=== PATIENT | female | born 1985 | race Caucasian/White ===

== ENCOUNTER 2021-04-16 17:19 | Emergency (ER) | payer MEDICAID ==
[2021-04-16] MEDS ORDERED: Clindamycin HCl 150 MG Cap PO ONE (18:23)
[2021-04-16] MEDS ORDERED: Doxycycline 100 MG Cap PO ONE (18:23)
--- NOTE | 2021-04-16 18:26 | EDM.PDOC ---
ED HPI GENERAL MEDICAL PROBLEM - General Chief Complaint: Skin Complaint Stated Complaint: ABCESS ON LEG Time Seen by Provider: 04/16/21 17:29 Source of Information: Reports: Patient, RN Notes Reviewed History Limitations: Reports: No Limitations - History of Present Illness INITIAL COMMENTS - FREE TEXT/NARRATIVE: Patient is a 35-year-old female presenting to the emergency department with complaints of an area of redness, pain, and swelling to her right lateral lower extremity. Reports 2 days ago she injected meth in this area and woke up with the discomfort this morning. She denies any fever, chills, nausea, or vomiting. She is also concerned that she may be . Reports that her Mirena is due to be replaced and she has been having breast tenderness. She would like a test done. Right Leg Pain Score (Numeric/FACES): 6 - Related Data Allergies Allergy/AdvReac Type Severity Reaction Status Date / Time amphetamine [From Adderall] Allergy Headache Verified 04/16/21 17:33 dextroamphetamine Allergy Headache Verified 04/16/21 17:33 [From Adderall] Home Meds: Home Meds Clindamycin HCl 300 mg PO Q8H 7 Days #20 capsule 04/16/21 [Rx] Doxycycline [Vibramycin] 100 mg PO BID 10 Days #19 cap 04/16/21 [Rx] Lisdexamfetamine Dimesylate [Vyvanse] 40 mg PO DAILY 04/16/21 [History] Past Medical History [employer] History: Reports: Psychiatric History: Reports: ADHD, Anxiety, Depression, PTSD Social & Family History - Tobacco Use Tobacco Use Status *Q: Current Every Day Tobacco User Years of Tobacco use: 20 Packs/Tins Daily: 0.5 - Caffeine Use Caffeine Use: Reports: Coffee, Energy Drinks, Soda - Recreational Drug Use Recreational Drug Use: Yes Recreational Drug Type: Reports: Marijuana/Hashish, Methamphetamine Recreational Drug Use Frequency: Daily ED ROS GENERAL - Review of Systems Review Of Systems: Comprehensive ROS is negative, except as noted in HPI. ED EXAM, SKIN/RASH Exam: See Below Exam Limited By: No Limitations General Appearance: Alert, WD/WN, No Apparent Distress Respiratory/Chest: No Respiratory Distress, Lungs Clear, Normal Breath Sounds, No Accessory Muscle Use, Chest Non-Tender Cardiovascular: Normal Peripheral Pulses, Regular Rate, Rhythm, No Edema, No Gallop, No JVD, No Murmur, No Rub Neurological: Alert, Oriented, Normal Cognition, Normal Gait, No Motor/Sensory Deficits Psychiatric: Normal Affect, Normal Mood Skin: Other (6 cm area of redness and warmth to the lateral aspect of the right lower extremity. No localized area of induration. No drainage.) Course - Vital Signs Last Recorded V/S: Last Vital Signs Temp 97.0 F 04/16/21 18:40 Pulse 106 H 04/16/21 18:40 Resp 16 04/16/21 18:40 BP 118/74 04/16/21 18:40 Pulse Ox 100 04/16/21 18:40 - Orders/Labs/Meds Labs: Laboratory Tests 04/16/21 Range/Units 17:40 Urine HCG, Qual Negative (NEGATIVE) Meds: Medications Discontinued Medications Generic Name Dose Route Start Last Admin Trade Name Freq PRN Reason Stop Dose Admin Clindamycin HCl 300 mg 04/16/21 18:23 04/16/21 18:35 Clindamycin Hcl 150 Mg Cap PO 04/16/21 18:24 300 mg ONETIME ONE Administration Ceftriaxone Sodium 1 gm/ 0 gm 04/16/21 18:30 04/16/21 18:36 Lidocaine HCl 2.1 ml IM 1 inj Q24H FLOR Administration Doxycycline Hyclate 100 mg 04/16/21 18:23 04/16/21 18:35 Doxycycline 100 Mg Cap PO 04/16/21 18:24 100 mg ONETIME ONE Administration - Re-Assessments/Exams Free Text/Narrative Re-Assessment/Exam: Patient is a 35-year-old female presenting to the emergency department for evaluation of infection to her right lower leg. She injected meth 2 days ago and developed pain and swelling this morning. On exam, there is approximate 6 cm area of redness, warmth, and slight swelling. There is no localized area of induration. Bedside ultrasound completed showed no collection of fluid indicating abscess. hCG test was completed during triage process and found to be negative. Patient will be treated with doxycycline and clindamycin for treatment of cellulitis. Recommend that she continue to monitor the area. If it seems to be worsening or she develops fever, chills, or vomiting, she should be reevaluated. She is in agreement with this plan. Discharge instructions as documented. Departure - Departure Time of Disposition: 18:26 Disposition: Home, Self-Care 01 Condition: Good Clinical Impression: Cellulitis Qualifiers: Site of cellulitis: extremity Site of cellulitis of extremity: lower extremity Laterality: right Qualified Code(s): L03.115 - Cellulitis of right lower limb - Discharge Information *PRESCRIPTION DRUG MONITORING PROGRAM REVIEWED*: No *COPY OF PRESCRIPTION DRUG MONITORING REPORT IN PATIENT LISA: No Prescriptions: Clindamycin HCl 300 mg PO Q8H 7 Days #20 capsule Doxycycline [Vibramycin] 100 mg PO BID 10 Days #19 cap Instructions: Cellulitis, Adult Referrals: Ne Porter PA [Primary Care Provider] - Forms: ED Department Discharge Additional Instructions: Take the clindamycin and doxycycline as prescribed. Use Tylenol and ibuprofen as needed for discomfort. You may apply warm pack to the area. If you should experience worsening of the infection site or develop fever, chills, or vomiting, you should be reevaluated. Sepsis Event Note (ED) - Focused Exam Vital Signs: Vital Signs Temp Pulse Resp BP Pulse Ox 04/16/21 18:40 97.0 F 106 H 16 118/74 100 04/16/21 17:32 96.9 F 100 18 123/70 100
[2021-04-16] MEDS ORDERED: cefTRIAXone 1 GM, Lidocaine 1% 2.1 ML IM SCH ×2 (18:30)
== END 2021-04-16 18:43 | disposition home or self-care (01) ==
LOC: JD.ED 17:19
DX: L03.115 Cellulitis of right lower limb (principal); Z72.0 Tobacco use; Z88.8 Allergy status to other drugs, medicaments and biological substances
CPT/HCPCS: 81025; 96372; 99283; A9270-GY; J0696